=== PATIENT | female | born 1950 | race Caucasian/White ===

== ENCOUNTER → 2017-12-08 | Outpatient (CLI) | payer MEDICARE ==
--- NOTE | 2017-12-08 16:44 | XR ---
EXAMINATION TYPE: XR chest 2V DATE OF EXAM: 12/08/2017 COMPARISON: NONE HISTORY: Recent pneumonia diagnosis. TECHNIQUE: Frontal and lateral views of the chest are obtained. FINDINGS: There is no focal air space opacity, pleural effusion, or pneumothorax seen. The cardiac silhouette size is upper limits of normal. The osseous structures are intact. IMPRESSION: No suspicious acute infiltrate.
== END | disposition home or self-care (01) ==
LOC: RADXRMAIN 16:06
PROVIDERS: ATTEND Family Medicine
DX: J18.9 Pneumonia, unspecified organism (principal)
CPT/HCPCS: 71046

== ENCOUNTER → 2019-03-31 | Outpatient (CLI) | payer MEDICARE ==
--- NOTE | 2019-04-01 07:14 | BD ---
EXAMINATION TYPE: Axial Bone Density DATE OF EXAM: 03/31/2019 COMPARISON: 2007 CLINICAL HISTORY: Postmenopausal female. Osteoporosis screening. Height: 5 FT 1 IN Weight: 139 FRAX RISK QUESTIONS: History of Fracture in Adulthood: YES RISK FACTORS HISTORY OF: Surgery to Spine/Hip(right/left)/Wrist (right/left): LUMBAR SURG When: 1998 Family History of Osteoporosis: YES Active: YES Postmenopausal woman: AGE 47 MEDICATIONS: Additional Medications: Additional History: NONE VIT D EXAM MEASUREMENTS: Bone mineral density about the R hip (g/cm2): 0.866 Bone mineral density about the L hip (g/cm2): 0.851 T Score values are as follows: -----R Neck: -1.2 -----L Neck: -1.3 -----R Total: -0.7 -----L Total: -0.7 Bone mineral density has: INCREASED 3.1 % since study of: 2007 Bone mineral density about the L Wrist (g/cm2): 0.605 T Score values are as follows: -----Dist. R+U: -0.1 -----Prox. R+U: -1.6 -----Radius total: -1.1 BASELINE IMPRESSION: Osteopenia (T Score between -2.5 and -1). There is slightly increased risk of fracture and the patient may be considered for treatment. Re-Screen 2-5 years. NOTE: T-SCORE=SD OF THE YOUNG ADULT MEAN.
--- NOTE | 2019-04-04 09:26 | MM ---
Reason for exam: screening (asymptomatic). Last mammogram was performed 7 years and 1 month ago. History: Patient is postmenopausal. Took estrogen for 2 years beginning at age 43. Physical Findings: A clinical breast exam by your physician is recommended on an annual basis and results should be correlated with mammographic findings. MG Screening Mammo w CAD Bilateral CC and MLO view(s) were taken. Prior study comparison: January 06, 2017, mammogram, performed at [facility]. March 09, 2012, bilateral digital screening mammo w/CAD. February 12, 2011, bilateral digital screening mammo w/CAD. There are scattered fibroglandular densities. No significant changes when compared with prior studies. ASSESSMENT: Negative, BI-RAD 1 RECOMMENDATION: Routine screening mammogram of both breasts in 1 year.
== END | disposition home or self-care (01) ==
LOC: RADMAMWWP 13:57
PROVIDERS: ATTEND Family Medicine
DX: Z12.31 Encounter for screening mammogram for malignant neoplasm of breast (principal); M85.822 Other specified disorders of bone density and structure, left upper arm; M85.88 Other specified disorders of bone density and structure, other site; Z78.0 Asymptomatic menopausal state
CPT/HCPCS: 77067; 77080

== ENCOUNTER → 2023-05-01 | Outpatient (CLI) | payer MEDICARE ==
[2023-05-01 10:35] LABS: INR 0.9 (<1.2); Partial Thromboplastin Time 23.1 sec (22.0-30.0); Prothrombin Time 9.6 sec (9.0-12.0)
[2023-05-01 15:31] LABS: Appearance,Urine Clear (Clear); Bilirubin,Urine Negative (Negative); Blood,Urine Negative (Negative); Color,Urine Yellow (Yellow); Ketones,Urine Negative (Negative); Nitrite,Urine Negative (Negative); PH, Urine 7.5; Specific Gravity,Urine 1.011 (1.001-1.030); Urobilinogen,Urine 0.2 E.U./DL
[2023-05-01 15:38] LABS: Bacteria,Urine None Seen (None Seen)
[2023-05-01 15:43] LABS: Blood Urea Nitrogen 11.3 mg/dL (9.0-27.0); Carbon Dioxide 25.6 mmol/L (21.6-31.8); Chloride 104 mmol/L (96-109); Glucose 91 mg/dL (70-110); Potassium 4.4 mmol/L (3.5-5.5); Sodium 140 mmol/L (135-145)
[2023-05-01 17:13] LABS: Basophils # (A) 0.04 X 10*3/uL (0.00-0.10); Basophils % (A) 0.5 %; Eosinophils # (A) 0.16 X 10*3/uL (0.04-0.35); Eosinophils % (A) 1.9 %; HCT 44.1 % (37.2-46.3); HGB 13.3 d/dL (12.0-15.0); Lymphocytes # (A) 1.95 X 10*3/uL (0.90-5.00); Lymphocytes % (A) 23.1 %; MCH 27.9 pg (27.0-32.0); MCHC 30.2 d/dL (32.0-37.0); MCV 92.5 FL (80.0-97.0); Monocytes # (A) 0.67 X 10*3/uL (0.20-1.00); Monocytes % (A) 7.9 %; NRBC Per 100 WBC 0 X 10*3/uL (0.00-0.01); Neutrophils # (A) 5.61 X 10*3/uL (1.80-7.70); Neutrophils % (A) 66.4 %; Platelet Count 304 X 10*3/uL (140-440); RBC 4.77 X 10*6/uL (4.10-5.20); RDW 15.5 % (11.5-14.5); WBC 8.45 X 10*3/uL (4.50-10.00)
== END | disposition home or self-care (01) ==
LOC: LABPAT 09:20
PROVIDERS: ATTEND Thoracic Surgery (Cardiothoracic Vascular Surgery)
DX: Z01.812 Encounter for preprocedural laboratory examination (principal); J84.10 Pulmonary fibrosis, unspecified; E87.8 Other disorders of electrolyte and fluid balance, not elsewhere classified; E83.40 Disorders of magnesium metabolism, unspecified; R58 Hemorrhage, not elsewhere classified; R06.02 Shortness of breath
CPT/HCPCS: 80051; 81001; 82565; 82947; 84520; 85025; 85610; 85730; 86850; 86900; 86901; 87086

== ENCOUNTER 2023-05-07 07:58 | Day surgery (SDC) | payer MEDICARE ==
[2023-05-07] MEDS ORDERED: LACTATED RINGERS 1,000 ML IV ONE ×2 (08:59)
[2023-05-07] MEDS ORDERED: ONDANSETRON 4 MG/2 ML VIAL ONE (09:06)
[2023-05-07] MEDS ORDERED: ONDANSETRON 4 MG/2 ML VIAL IVP ONE (09:10)
[2023-05-07] MEDS ORDERED: MIDAZOLAM 2 MG/2 ML VIAL IVP ONE (09:42)
[2023-05-07] MEDS ORDERED: fentaNYL (PF) 50 MCG/1 ML VIAL IVP ONE (09:43)
[2023-05-07] MEDS ORDERED: ROPIVACAINE 5 MG/ML 30 ML VIAL ONE (10:59)
[2023-05-07] MEDS ORDERED: GLYCOPYRROLATE 0.2 MG/ML 2 ML VIAL ONE (10:59)
[2023-05-07] MEDS ORDERED: MIDAZOLAM 2 MG/2 ML VIAL ONE (10:59)
[2023-05-07] MEDS ORDERED: PROPOFOL 10 MG/ML 20 ML VIAL IV ONE (10:59)
[2023-05-07] MEDS ORDERED: HYDROmorphone (PF) 1 MG/ML ONE (10:59)
[2023-05-07] MEDS ORDERED: LIDOCAINE 2% INJ 20 MG/ML (2 ML VIAL) ONE (10:59)
[2023-05-07] MEDS ORDERED: PHENYLEPHRINE 10 MG/ML VIAL ONE (10:59)
[2023-05-07] MEDS ORDERED: SUCCINYLCHOLINE CHLORIDE 200 MG/10 ML VIAL IV ONE (10:59)
[2023-05-07] MEDS ORDERED: NEOSTIGMINE 1 MG/ML 10 ML VIAL ONE (10:59)
[2023-05-07] MEDS ORDERED: ROCURONIUM 10 MG/ML (5 ML VIAL) IV ONE (10:59)
[2023-05-07] MEDS ORDERED: fentaNYL (PF) 50 MCG/ML 2 ML AMP ONE (10:59)
[2023-05-07] MEDS ORDERED: BUPIVACAINE (PF) 0.5% 30 ML VIAL SQ ONE (11:34)
--- NOTE | 2023-05-07 12:09 | P.OP ---
Date of Procedure: 05/07/23 Preoperative Diagnosis: Bilateral pulmonary infiltrates Postoperative Diagnosis: Same Procedure(s) Performed: Thoracoscopic left lung biopsy Anesthesia: GETA Surgeon: Kamaljit Davis Estimated Blood Loss (ml): 5 Pathology: other (Biopsy left upper lobe, left lower lobe, lingula all for pathology and cultures) Condition: stable Disposition: PACU Indications for Procedure: 73-year-old female presents with exertional dyspnea found to have bilateral interstitial pulmonary infiltrates. Patient was evaluated by pulmonology and referred for lung biopsy. Operative Findings: Pleural space was free of disease. Lung compliance was diminished. The lung was pink but had a knobby appearance and gritty consistency. Description of Procedure: Patient was brought to the operating room and placed supine on the operating table. Gen. anesthesia was induced. Double-lumen endotracheal tube was placed and positioned with fiberoptic bronchoscopy and secured. Patient was turned in the right lateral decubitus position. 3 one-inch incisions were made in the left chest and the video thoracoscope introduced into the pleural space. The lung was collapsed and evaluation of the pleural space with findings as noted above. 3 wedge biopsies were performed with multiple firings of Endo HEIDI stapler: a portion of the lingula was removed, a portion of the left upper lobe midway up the fissure toward the apex, and a portion of the left lower lobe near the diaphragm anteriorly. All specimens were brought onto the field and divided. Each specimen was sent for pathology and culture including routine, AFB and fungal cultures. On completion of the biopsy, 28-Armenian chest tube was placed through one incision and positioned posterior apically and secured. The lung was inflated under thoracoscopic visualization. Incisions were closed with layers of Vicryl suture. Rib blocks were performed at the level of the incisions posteriorly with half percent Marcaine. Dry sterile dressings were applied the patient was turned supine and extubated and transferred to recovery in stable condition.
[2023-05-07] MEDS ORDERED: LABETALOL SYRINGE 5 MG/ML (4 ML SYR) IVP ONE (12:39)
[2023-05-07] MEDS ORDERED: HYDROmorphone 0.5 MG/0.5 ML SYRINGE IVP ONE ×3 (12:46→16:09)
--- NOTE | 2023-05-07 12:48 | XR ---
EXAMINATION TYPE: XR chest 1V portable DATE OF EXAM: 05/07/2023 HISTORY: post lung biopsy COMPARISON: 12/08/2017 TECHNIQUE: Single view of the chest is submitted. FINDINGS: Left-sided chest tube is in place. No evidence for sizable pneumothorax. Left basilar infiltrate is n onspecific. The heart is stable. Hilar and mediastinal structures are within normal limits. Degenerative changes are seen of the dorsal spine. IMPRESSION: 1. Left-sided chest tube is in place. No evidence for sizable pneumothorax. Left basilar infiltrate is nonspecific.
--- NOTE | 2023-05-07 13:23 | P.ANPRN ---
Procedure Note - Anesthesia - Invasive Line Right Arterial Line Time Out Performed: Yes (0942) Date of Procedure: 05/07/23 Time of Procedure: 09:43 Location of Patient: PreOp Preparation: Sterile Prep, Sterile Dressing Arterial Line Location: Radial (right) Ultrasound Used: Yes Purpose - Visualization and Identification of Vasculature: Yes Needle Guage: 20g Image Stored and Saved: Yes Narrative: Central line placement per sterile protocol utilized.
--- NOTE | 2023-05-07 13:24 | P.ANPRN ---
Procedure Note - Anesthesia - Nerve Block Performed Left Erector Spinae Single Time Out Performed: Yes (0942) Date of Procedure: 05/07/23 Procedure Start Time: 09:43 Procedure Stop Time: 09:47 Location of Patient: PreOp Indication: Acute Post-Operative Pain, Requested by Surgeon Specifically requested for management of pain by DrYahir: Kamaljit Davis Sedation Type: Sedate with meaningful contact maintained Preparation: Sterile Prep Position: Sitting Catheter: None Needle Types: Pajunk Needle Gauge: 21 Ultrasound used to visualize needle placement: Yes Ultrasound used to observe medication spread: Yes Injectate: 0.5% Ropivacaine (see comment for volume) (30CC) Blood Aspirated: No Pain Paresthesia on Injection Noted: No Resistance on Injection: Normal Image Stored and Saved: Yes Events: Uneventful and Well Tolerated
--- NOTE | 2023-05-07 14:39 | P.CNPUL ---
History of Present Illness Consult date: 05/07/23 Requesting physician: Kamaljit Davis Reason for consult: pulmonary fibrosis Chief complaint: Dyspnea on exertion History of present illness: This is a 73-year-old female patient with a history of hyperlipidemia. She is a lifelong nonsmoker. She had noted increasing dyspnea on minimal exertion. She was seen by Dr. Mei in our office for the same. CAT scan of the chest had revealed patchy bilateral honeycombing and reticular changes concerning for interstitial lung disease. Pulmonary function testing revealed vital capacity of 71% of predicted, FEV1 85% of predicted. DLCO was 40%. She had a 6 minute walk and her O2 saturations stayed in the 90s. She was recommended lung biopsy for definitive diagnosis. She is brought in today electively for a left-sided thoracoscopic biopsy. She is seen in the postoperative recovery area. She is currently resting comfortably in a stretcher. Maintaining O2 saturations in the 90s on 4 L per nasal cannula. Afebrile. Hemodynamically stable. Left-sided chest tube remains in place. Chest x-ray does not reveal any sizable pneumothorax. Some left basilar infiltrate. Review of Systems REVIEW OF SYSTEMS: CONSTITUTIONAL: Denies any recent significant weight loss or weight gain. EYES: Denies change in vision. EARS, NOSE, MOUTH, THROAT: Denies headaches, denies sore throat. CARDIOVASCULAR: Denies chest pain, palpitations or syncopal episodes. RESPIRATORY: Positive for dyspnea on exertion, no cough, congestion or hemoptysis. GASTROINTESTINAL: Denies change in appetite, denies abdominal pain GENITOURINARY: Denies hematuria, denies infections. MUSKULOSKELETAL: Denies pain, denies swelling. INTEGUMENTARY: Denies rash, denies eczema. NEUROLOGICAL: Denies recent memory loss, no recent seizure activity. PSYCHIATRIC: Denies anxiety, denies depression. HEMATOLOGIC/LYMPHATIC: Denies anemia, denies enlarged lymph nodes. Past Medical History Additional Past Medical History / Comment(s): SOB w/exertion recently started, recent elevation in pulse, possible pulmonary fibrosis History of Any Multi-Drug Resistant Organisms: None Reported Past Surgical History: Back Surgery, Orthopedic Surgery, Tubal Ligation Additional Past Surgical History / Comment(s): fusion L-4 L-5, cataracts removed, corneal transplant right eye, right shoulder surg Past Anesthesia/Blood Transfusion Reactions: No Reported Reaction Smoking Status: Never smoker - Past Family History Father Family Medical History: Cancer Additional Family Medical History / Comment(s): lung Brother(s) Family Medical History: Cancer Additional Family Medical History / Comment(s): brain Medications and Allergies Home Medications Medication Instructions Recorded Confirmed Type Atorvastatin [Lipitor] 20 mg PO HS 05/05/23 05/05/23 History Cholecalciferol [Vitamin D3 (10 10 mcg PO DAILY 05/05/23 05/05/23 History Mcg = 400 Iu)] prednisoLONE ACETATE 1% OPHTH 1 drops RIGHT EYE DAILY 05/05/23 05/05/23 History [Pred Forte 1%] Allergies Allergy/AdvReac Type Severity Reaction Status Date / Time No Known Allergies Allergy Verified 05/07/23 08:39 Physical Exam Vitals: Vital Signs Temp Pulse Pulse Resp BP BP Pulse Ox 05/07/23 14:15 59 L 16 135/65 97 05/07/23 14:00 56 L 16 143/65 96 05/07/23 13:45 55 L 16 136/64 94 L 05/07/23 13:30 55 L 16 139/65 98 05/07/23 13:13 58 L 16 143/61 98 05/07/23 12:58 56 L 16 157/70 99 05/07/23 12:43 51 L 16 158/60 182/73 100 05/07/23 12:28 53 L 16 172/75 204/86 100 05/07/23 12:13 97 F L 78 12 139/62 158/62 100 05/07/23 09:57 68 16 151/83 98 05/07/23 08:44 97.4 F L 80 16 165/81 95 Intake and Output 05/06/23 05/07/23 05/07/23 22:59 06:59 14:59 Intake Total 1000 Output Total 5 Balance 995 Intake: IV 1000 Output: Estimated Blood Loss 5 Other: Weight 62.3 kg GENERAL EXAM: Arousable pleasant 73-year-old female, on 4 L nasal cannula, fairly comfortable in no apparent distress. HEAD: Normocephalic. EYES: Normal reaction of pupils, equal size. NOSE: Clear with pink turbinates. THROAT: No erythema or exudates. NECK: No masses, no JVD. CHEST: No chest wall deformity. Left sided chest tube remains in place. LUNGS: Equal air entry with crackles in the left lung base. CVS: S1 and S2 normal with no audible murmur, regular rhythm. ABDOMEN: No hepatosplenomegaly, normal bowel sounds, no guarding or rigidity. SPINE: No scoliosis or deformity SKIN: No rashes CENTRAL NERVOUS SYSTEM: No focal deficits, tone is normal in all 4 extremities. EXTREMITIES: There is no peripheral edema. No clubbing, no cyanosis. Peripheral pulses are intact. Results - Diagnostic Findings Chest x-ray: image reviewed Assessment and Plan Assessment: Dyspnea on exertion in a patient found to have bilateral patchy areas of honeycombing, reticular changes involving the periphery the upper lobes as well as the lung bases suspicious for interstitial lung disease. Status post thoracoscopic lung biopsy on the left. Postoperative day #0 Hyperlipidemia Lifelong nonsmoker Plan: The patient was seen and evaluated Chest x-ray and medications reviewed Left-sided chest tube remains in place No sizable pneumothorax noted Educated regarding these of the incentive spirometer Titrate down the FiO2 as tolerated Increase her activity as tolerated We will continue to follow and make further recommendations based on her clinical status I have personally seen and examined the patient, performed the documentation and the assessment and plan as written. Number of minutes spent on the visit: 20.
[2023-05-07] MEDS ORDERED: IPRATROPIUM-ALBUTEROL 3 ML NEB IH PRN (18:19)
[2023-05-07] MEDS ORDERED: traMADol 50 MG TAB PO PRN (18:19)
[2023-05-07] MEDS ORDERED: DEXTROSE 5%-0.45% NACL 1,000 ML IV SCH ×2 (18:19→19:00)
[2023-05-07] MEDS ORDERED: ONDANSETRON 4 MG/2 ML VIAL IVP PRN (18:19)
[2023-05-07] MEDS ORDERED: ACETAMINOPHEN TAB 325 MG TAB PO PRN (18:19)
[2023-05-07 18:25] VITALS: RESP 18
[2023-05-07] MEDS: KETOROLAC 15 MG/ML 1 ML VIAL IVP SCH (20:04)
[2023-05-07] MEDS: HEPARIN SODIUM,PORCINE/PF 5,000 UNIT/0.5 ML SYRINGE SQ SCH (20:18)
[2023-05-07] MEDS ORDERED: ATORVASTATIN 20 MG TAB PO SCH (21:00)
[2023-05-07] MEDS: IPRATROPIUM-ALBUTEROL 3 ML NEB IH SCH ×2 (21:33→21:34)
[2023-05-08] MEDS: KETOROLAC 15 MG/ML 1 ML VIAL IVP SCH ×2 (00:13→06:11)
[2023-05-08] MEDS: HEPARIN SODIUM,PORCINE/PF 5,000 UNIT/0.5 ML SYRINGE SQ SCH (03:32)
[2023-05-08 04:03] VITALS: BP 136/72; TEMP 98.7
--- NOTE | 2023-05-08 06:44 | XR ---
EXAMINATION TYPE: XR chest 2V DATE OF EXAM: 05/08/2023 COMPARISON: 05/07/2023 HISTORY: post lung biopsy TECHNIQUE: Frontal and lateral views of the chest are obtained. FINDINGS: Left-sided chest tube is redemonstrated. There is a new left apical pneumothorax noted safia uring 1.1 cm apical pleural distance. Lateral wall pleural distances 5.7 mm. There is increasing subc utaneous emphysema along the left chest wall. Persistent parenchymal density is noted at the lung bases left greater than right. Heart size is stable. Mediastinal structures are stable and grossly unremarkable. No evidence for hilar prominence. Degenerative changes dorsal spine. IMPRESSION: 1. New estimated 10% left-sided pneumothorax. Increasing left-sided subcutaneous emphysema. 2. Stable basilar parenchymal densities.
[2023-05-08 07:33] LABS: African American GFR (CKD) >90 (>60 ml/min/1.73 sqM); Anion Gap 6 mmol/L; Blood Urea Nitrogen 12 mg/dL (7-17); Calcium 8.5 mg/dL (8.4-10.2); Carbon Dioxide 29 mmol/L (22-30); Chloride 102 mmol/L (98-107); Glucose 109 mg/dL (74-99); Non-African American GFR(CKD) >90 (>60 ml/min/1.73 sqM); Sodium 137 mmol/L (137-145)
[2023-05-08 07:48] LABS: Basophils % (A) 0 %; Eosinophils % (A) 0 %; HCT 37.1 % (34.0-46.0); HGB 12.3 gm/dL (11.4-16.0); Lymphocytes # (A) 1.7 k/uL (1.0-4.8); Lymphocytes % (A) 17 %; MCH 30.2 pg (25.0-35.0); MCV 91.4 fL (80.0-100.0); Mean Platelet Volume 8.3; Monocytes # (A) 0.6 k/uL (0-1.0); Monocytes % (A) 6 %; Neutrophils # (A) 7.3 k/uL (1.3-7.7); Neutrophils % (A) 75 %; Platelet Count 251 k/uL (150-450); RBC 4.06 m/uL (3.80-5.40); RDW 14.6 % (11.5-15.5); WBC 9.7 k/uL (3.8-10.6)
[2023-05-08] MEDS: IPRATROPIUM-ALBUTEROL 3 ML NEB IH SCH (08:36)
[2023-05-08 08:39] VITALS: PULSE 80
[2023-05-08] MEDS ORDERED: prednisoLONE ACETATE 1% OPHTH DROPS 5 ML BTL RIGHT EYE SCH (09:00)
[2023-05-08] MEDS ORDERED: CHOLECALCIFEROL 10 MCG (400 IU) TABLET PO SCH (09:00)
--- NOTE | 2023-05-08 11:14 | P.DS ---
Providers Expected date of discharge: 05/08/23 Attending physician: Kamaljit Davis Consults: 05/07/23 18:19 Consult Physician Routine Consulting Provider: April Mai Reason/Comments: post lung biopsy; [place] patient Do you want consulting provider notified?: Already Contacted [facility] Course: FINAL DIAGNOSIS: Bilateral pulmonary infiltrates Dyspnea on exertion, likely secondary to above Hyperlipidemia Lifetime nonsmoker PRINCIPAL PROCEDURE: 1. Thoracoscopic left lung biopsy HISTORY OF PRESENT ILLNESS: This is a 73-year-old female patient who follows on an outpatient basis for primary care service with Dr. Kincaid and with Dr. Angelito Mei for her pulmonary care management. Recently, she has had complaints of progressive dyspnea on exertion, with nonproductive cough and overall feeling of fatigue. The patient is very active, spent a month hiking in [place] about one year ago. She also enjoys gardening and does not own any birds. Subsequently, due to her progressive dyspnea she underwent a CT of the chest which demonstrated bilateral patchy areas of honeycombing, reticular changes involving the periphery of the upper lobes as well as the lung bases. It is particularly demonstrated in the area of the lingula and is more prominent on the left than the right. Over the past 2-3 months the patient has reported that her symptoms of dyspnea have been progressive. She underwent pulmonary function testing performed at Dr. Mei's office which showed a functional vital capacity 71% of predicted value, and a FEV1 was 85% of predicted value, and her DLCO was 48% predicted value. The patient also underwent a 6 minute walk test with her room air oxygen saturation was 96% and subsequently dropped to 91% with activity. Due to the patient's above-mentioned symptoms, findings on the CT of the chest and her pulmonary function test findings a consult was placed to Dr. Kamaljit Davis from cardiothoracic surgery. The patient, her and son Ariel met with Dr. Davis, treatment options were discussed, including thoracoscopic lung biopsy, risks and benefits of the procedure were discussed and knowing and understanding the risks the patient wished to proceed with the surgical option. HOSPITAL COURSE: The patient was brought to the hospital on 05/07/2023, taken to the preoperative area, prepared in the usual fashion and subsequently taken to the operating room for Dr. Kamaljit Davis performed a thoracoscopic left lung biopsy. Upon completion of the surgery the patient was extubated, and taken to the recovery room for hemodynamic monitoring. Eventually she was admitted to the third floor cardiac stepdown unit for continued recovery and monitoring. Her oxygen was titrated off, she was maintaining good oxygen saturations on room air, she was tolerating an oral diet and her pain was controlled. Her chest tube was placed to waterseal and was removed today 05/08/2023 without incident. A follow-up chest x-ray did demonstrate a tiny left apical pneumothorax which was expected, she remained in no acute distress on room air and was ready to be discharged home on postoperative day #1. She has received written and verbal instructions regarding her medications, activity restrictions, signs and symptoms requiring physician notification and her follow-up appointments. Plan - Discharge Summary Discharge Rx Participant: Yes New Discharge Prescriptions: New Acetaminophen Tab [Tylenol] 650 mg PO Q4HR PRN tab PRN Reason: Mild To Moderate Pain (1 - 6) Continue Atorvastatin [Lipitor] 20 mg PO HS Cholecalciferol [Vitamin D3 (10 Mcg = 400 Iu)] 10 mcg PO DAILY prednisoLONE ACETATE 1% OPHTH [Pred Forte 1%] 1 drops RIGHT EYE DAILY Discharge Medication List Atorvastatin [Lipitor] 20 mg PO HS 05/05/23 [History] Cholecalciferol [Vitamin D3 (10 Mcg = 400 Iu)] 10 mcg PO DAILY 05/05/23 [History] prednisoLONE ACETATE 1% OPHTH [Pred Forte 1%] 1 drops RIGHT EYE DAILY 05/05/23 [History] Acetaminophen Tab [Tylenol] 650 mg PO Q4HR PRN tab 05/08/23 [Rx] Follow up Appointment(s)/Referral(s): Kamaljit Davis MD [STAFF PHYSICIAN] - 05/14/23 3:00 pm Angelito Mei DO [Doctor of Osteopathic Medicine] - 05/25/23 9:30 am (Office will try to get you in sooner if appointment opens up) Peggy Kincaid [Primary Care Provider] - As Needed Activity/Diet/Wound Care/Special Instructions: DISCHARGE INSTRUCTIONS: 1. No driving for 2 weeks, or until physician gives their ok. 2. No lifting, pushing, or pulling more than 10 pounds for 2 weeks. The physician will advise of any restriction changes. 3. Continue pain control per as needed orders. Alternate acetaminophen (Tylenol) and ibuprofen (Motrin/Advil) for pain. 4. Continue with incentive spirometry and splinting until otherwise directed by the physician. 5. Leave chest tube dressing for 48 hours. After that, remove all dressings and shower daily. 6. Routine incision care. No powders, lotions, ointments on incisions. 7. Please call surgeon/[facility] for temp greater than 101 F or purulent drainage from incisions. Discharge Disposition: HOME SELF-CARE
--- NOTE | 2023-05-08 11:58 | P.PN ---
Subjective Progress Note Date: 05/08/23 This is a 73-year-old female patient with a history of hyperlipidemia. She is a lifelong nonsmoker. She had noted increasing dyspnea on minimal exertion. She was seen by Dr. Mei in our office for the same. CAT scan of the chest had revealed patchy bilateral honeycombing and reticular changes concerning for interstitial lung disease. Pulmonary function testing revealed vital capacity of 71% of predicted, FEV1 85% of predicted. DLCO was 40%. She had a 6 minute walk and her O2 saturations stayed in the 90s. She was recommended lung biopsy for definitive diagnosis. She is brought in today electively for a left-sided thoracoscopic biopsy. She is seen in the postoperative recovery area. She is currently resting comfortably in a stretcher. Maintaining O2 saturations in the 90s on 4 L per nasal cannula. Afebrile. Hemodynamically stable. Left-sided chest tube remains in place. Chest x-ray does not reveal any sizable pneumothorax. Some left basilar infiltrate. The patient was seen today 05/08/2023 in follow-up on the selective care unit. She is currently awake and alert in no acute distress. Chest x-ray revealed a 10% left apical pneumothorax with left-sided subcutaneous emphysema. Her chest tube has been removed. She's been up ambulating in her room. No shortness of breath, cough or congestion. Maintaining good O2 saturations in the 90s on room air. White count 9.7. Hemoglobin 12.3. Platelets 251. Sodium 137. Potassium 4.0. Bicarb 29. BUN 12. Creatinine 0.55. Glucose 109. Objective - Vital Signs Vital signs: Vital Signs Temp 98.7 F 05/08/23 04:03 Pulse 80 05/08/23 08:52 Resp 18 05/08/23 04:03 BP 136/72 05/08/23 04:03 Pulse Ox 97 05/08/23 08:36 FiO2 Intake & Output 05/07/23 05/08/23 05/08/23 18:59 06:59 18:59 Intake Total 1300 599 Output Total 702 066 360 Balance 595 -760 239 Weight 62.3 kg Intake: IV 1300 Oral 599 Output: Chest Tube Drainage 110 60 Chest Tube Left 110 60 Urine 700 650 300 Straight 700 Estimated Blood Loss 5 Other: # Voids 1 - Exam GENERAL EXAM: Awake, alert very pleasant 73-year-old female, on room air, comfortable in no apparent distress. HEAD: Normocephalic. EYES: Normal reaction of pupils, equal size. NOSE: Clear with pink turbinates. THROAT: No erythema or exudates. NECK: No masses, no JVD. CHEST: No chest wall deformity. Left sided chest tube removed. LUNGS: Equal air entry with crackles in the left lung base. CVS: S1 and S2 normal with no audible murmur, regular rhythm. ABDOMEN: No hepatosplenomegaly, normal bowel sounds, no guarding or rigidity. SPINE: No scoliosis or deformity SKIN: No rashes CENTRAL NERVOUS SYSTEM: No focal deficits, tone is normal in all 4 extremities. EXTREMITIES: There is no peripheral edema. No clubbing, no cyanosis. Peripheral pulses are intact. - Labs CBC & Chem 7: 05/08/23 06:55 05/08/23 06:55 Labs: Abnormal Lab Results - Last 24 Hours (Table) 05/08/23 Range/Units 06:55 Glucose 109 H (74-99) mg/dL Microbiology - Last 24 Hours (Table) 05/07/23 11:39 Gram Stain - Preliminary Lung - Left Upper Lobe Tissue Culture - Preliminary 05/07/23 11:40 Gram Stain - Preliminary Other - Other Tissue Culture - Preliminary 05/07/23 11:39 Gram Stain - Preliminary Lung - Left Lower Lobe Tissue Culture - Preliminary Assessment and Plan Assessment: Dyspnea on exertion in a patient found to have bilateral patchy areas of honeycombing, reticular changes involving the periphery the upper lobes as well as the lung bases suspicious for interstitial lung disease. Status post thoracoscopic lung biopsy on the left. Postoperative day #1 Hyperlipidemia Lifelong nonsmoker Plan: The patient was seen and evaluated Chest x-ray and medications reviewed Left-sided chest tube removed No sizable pneumothorax noted Cleared for discharge from the pulmonary standpoint Follow up with Dr. Mei in our office in 1 week I have personally seen and examined the patient, performed the documentation and the assessment and plan as written. Number of minutes spent on the visit: 10.
--- NOTE | 2023-05-08 12:13 | XR ---
EXAMINATION TYPE: XR chest 1V portable DATE OF EXAM: 05/08/2023 HISTORY: Shortness of breath. COMPARISON: 05/08/2023 TECHNIQUE: Single view of the chest is submitted. FINDINGS: Left sided chest tube has been removed. Residual left apical pneumothorax noted with apical pleural d istance of 1.5 cm versus 1.2 cm previously. Left chest wall subcutaneous emphysema redemonstrated. Left lower lobe infiltrate again noted. The heart is stable. Hilar and mediastinal structures are within normal limits. Degenerative changes are seen of the dorsal spine. IMPRESSION: 1. Small residual left apical pneumothorax.
== END 2023-05-08 11:35 | disposition home or self-care (01) ==
LOC: OR 07:58 → UNDOADMIN 11:09 → 3SCARD 11:09 → EDSTATUS 12:30 → 3SCARD 16:35 → UNDODISIN 05-08 11:35 → OR 05-08 11:35
PROVIDERS: ATTEND Thoracic Surgery (Cardiothoracic Vascular Surgery)
PROC: 0BBG4ZX Excision of Left Upper Lung Lobe, Percutaneous Endoscopic Approach, Diagnostic (ICD-10-PCS; 2023-05-07)
PROC: 0BBH4ZX Excision of Lung Lingula, Percutaneous Endoscopic Approach, Diagnostic (ICD-10-PCS; 2023-05-07)
PROC: 0W9B30Z Drainage of Left Pleural Cavity with Drainage Device, Percutaneous Approach (ICD-10-PCS; 2023-05-07)
PROC: 03HY32Z Insertion of Monitoring Device into Upper Artery, Percutaneous Approach (ICD-10-PCS; 2023-05-07)
PROC: 4A133B1 Monitoring of Arterial Pressure, Peripheral, Percutaneous Approach (ICD-10-PCS; 2023-05-07)
PROC: 4A133J1 Monitoring of Arterial Pulse, Peripheral, Percutaneous Approach (ICD-10-PCS; 2023-05-07)
PROC: 02HV33Z Insertion of Infusion Device into Superior Vena Cava, Percutaneous Approach (ICD-10-PCS; 2023-05-07)
PROC: 0BBJ4ZX Excision of Left Lower Lung Lobe, Percutaneous Endoscopic Approach, Diagnostic (ICD-10-PCS; principal; 2023-05-07 10:30)
DX: R91.8 Other nonspecific abnormal finding of lung field (principal); J93.83 Other pneumothorax; E78.5 Hyperlipidemia, unspecified; J84.10 Pulmonary fibrosis, unspecified; Z79.899 Other long term (current) drug therapy; Z94.7 Corneal transplant status; Z80.8 Family history of malignant neoplasm of other organs or systems
CPT/HCPCS: 94640 ×2; 94760; 64999; 80048; 85025; 88307; 87070 ×3; 87205 ×3; 87116 ×3; 87102 ×3; 87206 ×3; 71045 ×2; 71046; C1729; J2250 ×2; J0330; J2710; J0690 ×3; J2405; J3010 ×2; J1170 ×4; J2795; J1885 ×3; J2704; J1644 ×2; J2001; J2371; 86850; 86900; 86901

== ENCOUNTER → 2023-08-12 | Outpatient (CLI) | payer MEDICARE ==
--- NOTE | 2023-08-12 14:38 | CT ---
EXAMINATION TYPE: CT chest wo con DATE OF EXAM: 08/12/2023 COMPARISON: 03/17/2023 HISTORY: pulmonary fibrosis CT DLP: 1198 mGycm High-resolution noncontrast CT of the chest was performed with the patient in the prone and supine po sitions. Lung and mediastinal window settings are submitted. The lungs appear to be well-aerated. There is moderate fibrosis seen greatest within the mid and lowe r lung zones particularly the lingula and left lower lobe. There is no evidence for bronchiectasis, g roundglass infiltrate, nodule or mass. No pleural effusion is identified. I do not see evidence for hilar or mediastinal mass or adenopathy. IMPRESSION: Idiopathic pulmonary fibrosis.
== END | disposition home or self-care (01) ==
LOC: RADCTMAIN 13:51
PROVIDERS: ATTEND Internal Medicine Pulmonary Disease
DX: J84.9 Interstitial pulmonary disease, unspecified (principal); J84.112 Idiopathic pulmonary fibrosis
CPT/HCPCS: 71250

== ENCOUNTER → 2023-10-30 | Outpatient (CLI) | payer MEDICARE ==
--- NOTE | 2023-11-08 23:46 | SLS ---
SLEEP STUDY This is a home sleep study. HISTORY OF PRESENT ILLNESS: A 73-year-old female patient, known history of IPF, referred to me for sleep apnea evaluation. The patient was recommended to undergo a home sleep study due to concerns of sleep apnea. She has hypertension, hyperlipidemia, depression, and history of eczema. PERTINENT PHYSICAL FINDINGS: The patient's height is 5 feet 2 inches, weight is 137, body mass index is 25. TECHNICAL DESCRIPTION: The [employer] system was used to complete the home sleep study. This is a type 3 home sleep study. Total recording duration was 7 hours and 34 minutes. The study started at 10:25 p.m., ended at 5:59 a.m. There was more than 7 hours of flow on oxygen saturation evaluation during the study. RESULTS: Respiratory analysis showed a total of 10 obstructive apneas and 113 obstructive hypopneas. The resulting apnea-hypopnea index was 16.8 consistent with mild to moderate obstructive sleep apnea. OXYGENATION ANALYSIS: There were a total of 138 oxygen desaturations, where the pulse ox dropped by more than 4%. Average pulse ox while awake was 91% and during sleep was 88%, lowest pulse ox of 71% and the patient spent approximately 2 hours and 51 minutes of sleep time below pulse ox of 89%. CARDIAC ANALYSIS: Average heart rate was 86, minimum heart rate 59, maximum heart rate was 113. ASSESSMENT: 1. Obstructive sleep apnea, mild to moderate in severity with an AHI of 16.8. 2. Nocturnal oxygen desaturation. Note that the patient has Idiopathic pulmonary fibrosis and she has baseline hypoxemia. Nevertheless, there is also considerable degree of oxygen desaturations occurring at nighttime as the patient spent approximately 2 hours and 51 minutes of sleep time below pulse ox of 89%. 3. Idiopathic pulmonary fibrosis, maintained on Ofev. 4. Hypertension. 5. History of depression. 6. Hyperlipidemia. PLAN: Based on the overall picture of interstitial lung disease, IPF, and obstructive sleep apnea, and based on the presence of nocturnal oxygen desaturations, I suggest considering CPAP therapy of this patient. This needs to be discussed with the patient. If she is willing and enthusiastic to undergo the treatment, the patient will be brought into the sleep center to undergo a CPAP titration to be followed by CPAP therapy. MMODL / IJN: [id number] /
== END ==
LOC: 3 N SLEEP 11:01
PROVIDERS: ATTEND Internal Medicine Critical Care Medicine
DX: G47.33 Obstructive sleep apnea (adult) (pediatric) (principal); G47.36 Sleep related hypoventilation in conditions classified elsewhere; I10 Essential (primary) hypertension; F32.A Depression, unspecified; E78.5 Hyperlipidemia, unspecified; J84.112 Idiopathic pulmonary fibrosis; Z79.899 Other long term (current) drug therapy

== ENCOUNTER → 2024-01-21 | Outpatient (CLI) | payer MEDICARE ==
--- NOTE | 2024-01-21 20:37 | CT ---
EXAMINATION TYPE: CT chest wo con DATE OF EXAM: 01/21/2024 COMPARISON: HISTORY: INTERSTITIAL LUNG DISEASE CT DLP: 511.8 mGycm, Automated exposure control for dose reduction was used. CONTRAST: None TECHNIQUE: Axial images were obtained at 1 mm thick sections at 10 mm intervals. This will limit po rtions of the examination which may not be visualized within the [id number]. Images were obtained in the prone and supine views. FINDINGS: Portion of the thyroid visualized is normal. There is moderate pulmonary fibrosis present within the periphery of the lung space includes both upper and lower mir appears greater in the de pendent portions of the exam. Some mild underlying pulmonary edema may be present which changes betwe en prone and supine images. No enlarged mediastinal or hilar adenopathy is evident. The ascending aorta diameter at the level o f the main pulmonary artery is 3.9 cm. The main pulmonary artery diameter at the bifurcation is 2.[address] sections are obtained through the upper abdomen. Abdomen is essentially unremarkable. IMPRESSION: 1. Moderate pulmonary fibrosis, stable from July 2023 2. There may be some minimal superimposed pulmonary edema
== END | disposition home or self-care (01) ==
LOC: RADCTMAIN 11:39
PROVIDERS: ATTEND Internal Medicine Critical Care Medicine
DX: J84.10 Pulmonary fibrosis, unspecified (principal); J84.9 Interstitial pulmonary disease, unspecified
CPT/HCPCS: 71250

== ENCOUNTER 2024-03-16 19:48 | Outpatient (CLI) | payer MEDICARE ==
--- NOTE | 2024-03-24 11:08 | P.PCN ---
Date of Procedure: 03/16/24 Operative Findings: CPAP titration study Date of services 03/16/2024 History This is a 73-year-old female patient with known history of IPF, hypertension hyperlipidemia and history of depression. The patient was also diagnosed having obstructive sleep apnea. The patient underwent a home sleep study that showed mild to moderate LEAH with an AHI of 16.8. The patient also encountered nocturnal oxygen desaturation that was quite severe due to a combination of IPF and obstructive sleep apnea. The patient accordingly was asked to come in to undergo a CPAP titration. Pertinent physical findings The height is 5 feet and 2 inches, weight is 133 and a BMI of 24.3 Technical description The patient was studied using a standard complex polysomnography protocol that included recording of the 2 EKG, Central, occipital and frontal EEG, right and left outer canthus EOG, submental EMG, right and left anterior tibialis EMG, respiratory airflow by thermocouple and or pressure/flow transducer, respiratory efforts by abdominal and thoracic PVDF belts, oxygen saturation by cable oximetry. Position by observation synchronized the PSG. Stepwise CPAP titration was done to eliminate obstructive respiratory events. Equipment used: [employer]. Sleep characteristics The total recording duration was 444.5 minutes. The total sleep time was 336.0 minutes. The overall sleep efficiency was 75.6%. Latency to sleep onset was 53 minutes. Latency to REM sleep was 78 minutes. The sleep architecture was catheterized by 0.6% stage I, 63.2% stage II, 7.4% stage III, 28.7% REM sleep. The total arousal index was 3.4. The wake after sleep onset time was 55 minutes. Respiratory analysis The patient was started on CPAP therapy initially at a pressure of 4 cm of water and the pressure was gradually increased by increments of 1 cm to reach a maximum CPAP pressure of 10 cm of water. I carefully reviewed the titration taken, the patient sleep stage and body position. Note that the study was done in various sleep stages including REM sleep and the patient is from different body position and the patient adequate recording while being supine. At a pressure of 9 cm of water there was adequate elimination of the obstructive respiratory events and the patient was able to maintain oxygen saturation above 90%. This will be chosen as the target pressure to treat this patient obstructive sleep apnea Sleep continuity summary The patient had total of 19 arousals with an index of 3.4 Periodic limb movement activity None Cardiac summary Average heart rate was 73 with a minimum heart rate of 69 and a maximal heart rate of 78 Assessment Moderately severe LEAH with an AHI of 16.8 associated with significant nocturnal oxygen desaturations. The patient underwent a successful CPAP titration. There was completed ablation of the obstructive respiratory events a day target CPAP pressure of 9 cm of water. Severe nocturnal oxygen desaturation, improved with CPAP therapy IPF maintained on Ofev Hypertension Hyperlipidemia Depression plan Initiate CPAP therapy at a pressure of 9 cm of water with a C-Flex of 3. Patient was provided an AirFit P10 medium size nasal pillows. The patient was seen back in the office in 30 to 90 days to assess clinical response and compliancy and further adjustments will be done accordingly. This was successful titration.
== END 2024-03-17 05:45 | disposition home or self-care (01) ==
LOC: 3 N SLEEP 19:48
PROVIDERS: ATTEND Internal Medicine Critical Care Medicine
DX: G47.33 Obstructive sleep apnea (adult) (pediatric) (principal); G47.36 Sleep related hypoventilation in conditions classified elsewhere; I10 Essential (primary) hypertension; E78.5 Hyperlipidemia, unspecified; F32.A Depression, unspecified; Z79.899 Other long term (current) drug therapy
CPT/HCPCS: 95811

== ENCOUNTER → 2024-04-18 | Outpatient (CLI) | payer MEDICARE ==
[2024-04-18 10:27] LABS: ALT 23 U/L (4-34); AST 29 U/L (14-36); African American GFR (CKD) >90 (>60 ml/min/1.73 sqM); Albumin 4.3 g/dL (3.5-5.0); Albumin/Globulin Ratio 1.4; Alkaline Phosphatase 61 U/L (38-126); Blood Urea Nitrogen 13 mg/dL (7-17); Calcium 9.6 mg/dL (8.4-10.2); Carbon Dioxide 29 mmol/L (22-30); Glucose 90 mg/dL (74-99); Non-African American GFR(CKD) >90 (>60 ml/min/1.73 sqM); Total Bilirubin 0.4 mg/dL (0.2-1.3); Total Protein 7.3 g/dL (6.3-8.2)
[2024-04-18 10:46] LABS: Anion Gap 6 mmol/L; Chloride 105 mmol/L (98-107); Sodium 140 mmol/L (137-145)
== END | disposition home or self-care (01) ==
LOC: LABWHC1 09:54
PROVIDERS: ATTEND Internal Medicine Critical Care Medicine
DX: J84.10 Pulmonary fibrosis, unspecified (principal)
CPT/HCPCS: 36415; 80053

== ENCOUNTER → 2024-08-11 | Outpatient (CLI) | payer MEDICARE ==
--- NOTE | 2024-08-15 10:18 | MM ---
Reason for Exam: Screening (asymptomatic). Last mammogram was performed 5 year(s) and 4 month(s) ago. Patient History: Menarche at age 11. First Full-Term at age 20. Postmenopausal. Estrogen for 2 years from age 43 until age 45. Risk Values: Ai 5 year model risk: 1.6%. NCI Lifetime model risk: 3.4%. Prior Study Comparison: 03/09/2012 Bilateral Screening Mammogram, [facility]. 01/06/2017 Screening Mammogram, [facility] [place]. 03/31/2019 Bilateral Screening Mammogram, [facility]. Tissue Density: There are scattered areas of fibroglandular density. Findings: Analyzed By CAD. Right breast: There is no suspicious group of microcalcifications or new suspicious mass. Left breast: There is no suspicious group of microcalcifications or new suspicious mass. Overall Assessment: Negative, BI-RAD 1 Management: Screening Mammogram of both breasts in [address] [facility] will attempt to contact patient to return for supplemental views and ultrasound if indicated. Patient should continue monthly self-breast exams. A clinical breast exam by your physician is recommended on an annual basis. This exam should not preclude additional follow-up of suspicious palpable abnormalities. Note on Ai scores and lifetime risk: 1. A Ai score greater than 3% is considered moderate risk. If this is the case, consider specialist referral to assess eligibility for a risk reducing agent. 2. If overall lifetime risk for the development of breast cancer is 20% or higher, the patient may qualify for future screening with alternating mammogram and breast MRI. [facility], , 08/15/2024 10:15 AM. Electronically signed and approved by: Angelito Payan DO
== END | disposition home or self-care (01) ==
LOC: RADMAMWWP 11:29
PROVIDERS: ATTEND Internal Medicine Geriatric Medicine
CPT/HCPCS: 77063; 77067

== ENCOUNTER → 2024-10-24 | Outpatient (CLI) | payer MEDICARE ==
[2024-10-24 15:47] LABS: ALT 19 U/L (8-44); AST 22 U/L (13-35); Albumin 4.4 g/dL (3.8-4.9); Albumin/Globulin Ratio 1.63 Ratio (1.60-3.17); Alkaline Phosphatase 78 U/L (41-126); Blood Urea Nitrogen 13.3 mg/dL (9.0-27.0); Calcium 9.3 mg/dL (8.7-10.3); Chloride 103 mmol/L (96-109); Globulin 2.7 g/dL (1.6-3.3); Glucose 101 mg/dL (70-110); Potassium 4.3 mmol/L (3.5-5.5); Sodium 140 mmol/L (135-145); Total Bilirubin 0.4 mg/dL (0.3-1.2); Total Protein 7.1 g/dL (6.2-8.2)
== END | disposition home or self-care (01) ==
LOC: LABWHC1 09:33
PROVIDERS: ATTEND Internal Medicine Critical Care Medicine
DX: Z51.81 Encounter for therapeutic drug level monitoring (principal); Z79.899 Other long term (current) drug therapy
CPT/HCPCS: 36415; 80053

== ENCOUNTER → 2025-02-13 | Outpatient (CLI) | payer MEDICARE ==
--- NOTE | 2025-02-13 18:23 | CT ---
EXAMINATION TYPE: CT chest wo con DATE OF EXAM: 02/13/2025 3:50 PM COMPARISON: 01/21/2024 CLINICAL INDICATION: Female, 74 years old with history of J84.112 IDIOPATHIC PULMONARY FIBROSIS, pulm onary fibrosis x 2 years, TECHNIQUE: High-resolution noncontrast CT of the chest was performed with the patient in the prone an d supine positions. Lung and mediastinal window settings are submitted. CT DLP: 1154 mGycm, Automated exposure control for dose reduction was used. FINDINGS: Lung volumes are diminished. There is evidence of fibrosis throughout the lungs greatest at the mid a nd lower lung zones. There is honeycombing in the region of the lingula and left greater than right l ower lobe. There is evidence of bronchiectasis. No evidence for mass or nodule. No pleural effusion i s identified. No focal consolidation. I do not see evidence for hilar or mediastinal mass or adenopat hy. No significant coronary artery calcifications. Cardiomegaly noted. IMPRESSION: Findings likely on the basis of idiopathic pulmonary fibrosis without significant interval jesse seals [facility], , 02/13/2025 6:21 PM
== END | disposition home or self-care (01) ==
LOC: RADCTMAIN 15:13
PROVIDERS: ATTEND Internal Medicine Critical Care Medicine
DX: J84.112 Idiopathic pulmonary fibrosis (principal)
CPT/HCPCS: 71250